=== PATIENT | male | born 1955 | race Caucasian/White ===

== ENCOUNTER 2023-01-16 01:27 | Observation (INO) | payer MEDICARE, MEDICAID ==
[2023-01-16] MEDS ORDERED: Acetaminophen 325 MG TAB PO PRN (02:26)
[2023-01-16] MEDS ORDERED: Ondansetron PF 4 MG/2 ML Vial IVP PRN (02:26)
[2023-01-16] MEDS ORDERED: Acetaminophen 650 MG Suppository PR PRN (02:26)
[2023-01-16] MEDS ORDERED: Ondansetron ODT 4 MG TAB PO PRN (02:26)
[2023-01-16 02:40] VITALS: BMI 31.6
[2023-01-16 04:30] LABS: #Eosinphils 0.2 thou/uL (0.0-0.7); #Lymphocytes 2.3 thou/uL (1.20-3.40); #Monocytes 1.5 thou/uL (0.11-0.59); #Neutrophils 7.3 thou/uL (1.40-6.50); %Basophils 0.4 % (0.0-1.0); %Eosinophils 1.8 % (0.0-10.0); %Lymphocytes 20.2 % (21.0-51.0); %Monocytes 13.4 % (0.0-10.0); %Neutrophils 64.3 % (42.0-75.0); Hemoglobin 14.4 g/dL (14.0-18.0); Mean Corpuscular HGB CONC 31.6 g/dL (32.0-36.0); Mean Corpuscular Hemoglobin 27.8 pg (27.0-31.0); Mean Corpuscular Volume 87.9 fl (78.0-98.0); Mean Platelet Volume 7.1 fL (7.4-10.4); Platelet Count 344 10x3/uL (130-400); RBC Distribution Width 12.1 % (11.5-14.5); Red Blood Cell (RBC) Count 5.19 mill/uL (4.70-6.10); White Blood Cell (WBC) Count 11.3 10x3/uL (4.8-10.8)
[2023-01-16 04:49] LABS: Anion Gap 15 mmol/L (10-20); BUN (Urea Nitrogen) 14 mg/dL (8.4-25.7); Calc. Creatinine Clearance 107 mL/min (70-130); Calcium 9.3 mg/dL (7.8-10.44); Carbon Dioxide 21 mmol/L (23-31); Chloride 100 mmol/L (98-107); Estimated GFR 95; Glucose 109 mg/dL (80-115); Potassium 3.6 mmol/L (3.5-5.1); Sodium 132 mmol/L (136-145)
[2023-01-16] MEDS ORDERED: Potassium Chloride 10 MEQ in Premix Bag 1 BAG IVPB SCH (08:30)
[2023-01-16] MEDS ORDERED: Apixaban 5 MG TAB PO SCH (09:00)
[2023-01-16] MEDS ORDERED: Losartan 25 MG TAB PO SCH (09:00)
[2023-01-16] MEDS ORDERED: Atenolol 25 MG TAB PO SCH ×2 (09:00→21:00)
[2023-01-16] MEDS ORDERED: Amlodipine 5 MG TAB PO SCH ×2 (09:00→21:00)
[2023-01-16 12:18] VITALS: BP 123/82; TEMP 97.7
[2023-01-16 12:37] LABS: Magnesium 1.9 mg/dL (1.6-2.6); Phosphorus 3.7 mg/dL (2.3-4.7)
== END 2023-01-16 15:20 | disposition home or self-care (01) ==
LOC: 2SW 02:18
PROVIDERS: ADMIT Hospitalist; ATTEND Hospitalist
DX: I48.92 Unspecified atrial flutter (principal); I44.30 Unspecified atrioventricular block; I10 Essential (primary) hypertension; Z79.01 Long term (current) use of anticoagulants; Z79.899 Other long term (current) drug therapy; Z88.8 Allergy status to other drugs, medicaments and biological substances; Z98.890 Other specified postprocedural states
CPT/HCPCS: 80048; 83735; 84100; 84443; 85025; 93005; G0378; G0379; 36415; 93010; J3480